=== PATIENT | female | born 1940 | race Caucasian/White ===

== ENCOUNTER → 2016-12-08 | Outpatient (CLI) | payer MEDICARE, OTHER ==
[~2016-12-08] MED LIST: ATOR20TA18 PO; ESTR0.3T3 PO; GABA-338 PO; IOHEXOL 350 MG/ML 75ml INJECTION ONE; LISI-126 PO; METF-200 PO; NORMAL SALINE 100 ML ONE; RIVA15TA PO; SALINE FLUSH 10ml SYRINGE ONE; [UNRECOGNIZED DRUG - CODE] PO
--- NOTE | 2016-12-08 10:43 | DI ---
Indication: ITS.REASON: I26.99 PE PROCEDURE: CTA PULMONARY EMBOLI: Encounter: Subsequent Comparison: CT angiogram of the chest dated February 15, 2016 Technique: Axial CT pulmonary angiographic phase images were performed through the chest after the administration of intravenous contrast. Coronal and Sagittal MIP reconstructed images were created and reviewed. Automated Exposure Control and Iterative Reconstruction dose reducing techniques were utilized. Contrast: Omnipaque 350 75 mL Findings: Pulmonary arteries: Exam is diagnostic to the segmental pulmonary arterial level. The prior multifocal areas of pulmonary emboli have resolved. No acute pulmonary embolus identified. Other findings: Benign right upper lobe pulmonary nodule is redemonstrated. No consolidative pneumonia, pleural effusion or pneumothorax. The central airways are patent. No axillary or mediastinal adenopathy. Heart size is stable. No pericardial effusion. The upper abdomen shows no acute findings. Impression: Interval resolution of the prior multifocal pulmonary emboli. No acute pulmonary embolus or acute intrathoracic disease process seen. .
== END ==
LOC: IMA 09:42
PROVIDERS: ATTEND Nurse Practitioner Family
DX: R91.1 Solitary pulmonary nodule (principal)
CPT/HCPCS: 71275; J7050; Q9967